=== PATIENT | male | born 1975 | race Caucasian/White ===

== ENCOUNTER → 2021-05-13 | Outpatient (CLI) | payer OTHER ==
[~2021-05-13] MED LIST: AZITHROMYCIN 2250 MG PO; NORCO 5-325 TA1 EACH PO
== END ==
LOC: M.CT 11:45
PROVIDERS: ATTEND Nurse Practitioner Family
DX: Z13.6 Encounter for screening for cardiovascular disorders (principal); I25.10 Atherosclerotic heart disease of native coronary artery without angina pectoris